=== PATIENT | female | born 2000 | race Caucasian/White ===

== ENCOUNTER 2021-10-15 11:50 | Emergency (ER) | payer OTHER, SELFPAY ==
[2021-10-15 13:16] VITALS: BP 151/78; PULSE 75; RESP 16; TEMP 36.4; O2SAT 99; BMI 42.7
--- NOTE | 2021-10-15 15:33 | ED.WOUNDLAC ---
HPI - Wound/Laceration General Chief Complaint: Wound/Laceration Stated Complaint: head inj lac 10/15/21 Time Seen by Provider: 10/15/21 15:32 Source: patient Mode of arrival: ambulatory Limitations: no limitations History of Present Illness HPI narrative: Patient is a 21 year old female presenting to the emergency department today with with a headache. Patient states that she accidentally closed her jeep trunk down onto her head. Patient states that she has a cut on her scalp and now has a headache. Patient denies any loss of consciousness with the incident. Patient denies any dizziness, lightheadedness, abdominal pain, nausea, vomiting, fever, chills, blurry vision, double vision, loss of vision, chest pain, difficulty breathing, shortness of breath, back pain, night sweats, pain with urination, increased urinary frequency, increased urinary urgency, blood in her urine or stool, syncope or a near syncopal episode, bowel incontinence, bladder incontinence, bowel retention, bladder retention, or any other complaints at this time. Onset (ago): hour(s) Location: scalp Place: home Patient tetanus UTD: No Context: accidental Associated symptoms: pain Related Data Allergies Allergy/AdvReac Type Severity Reaction Status Date / Time latex Allergy Rash Verified 10/15/21 13:21 Review of Systems Constitutional: Constitutional: Reports no additional constitutional complaints, Denies chills, Denies fever(s), Reports headache(s) and Denies night sweats Eyes: Eyes: Reports no additional eye complaints, Denies blurry vision, Denies change in vision, Denies diplopia, Denies eye discharge, Denies loss of vision and Denies eye pain ENT: Denies dizziness and Reports headache(s) Cardiovascular: Cardiovascular: Reports no additional cardiovascular complaints, Denies chest pain, Denies lightheadedness, Denies Loss of Consciousness and Denies dyspnea Respiratory: Respiratory: Reports no additional respiratory complaints and Denies dyspnea Gastrointestinal: Gastrointestinal: Reports no additional gastrointestinal complaints, Denies abdominal pain, Denies melena, Denies hematochezia, Denies change in bowel habits and Denies change in stool character Genitourinary: Genitourinary: Denies hematuria, Denies urinary frequency, Denies dysuria, Denies urinary incontinence, Denies urinary hesitancy and Denies urinary urgency Musculoskeletal: Musculoskeletal: Reports no additional musculoskeletal complaints, Denies numbness and Denies tingling Neurologic: Denies dizziness, Reports headache(s), Denies loss of vision, Denies numbness and Denies tingling Psychiatric: Psychiatric: Reports no additional psychiatric complaints Endocrine: Endocrine: Reports no additional endocrine complaints Hematologic/Lymphatic: Hematologic/Lymphatic: Reports no additional hematologic/lymphatic complaints Allergic/Immunologic: Allergic/Immunologic: Reports no additional allergic/immunologic complaints PMFSH Past Medical History Attestation statement: The following information was validated with the patient. Source: old records reviewed Physical Exam Vital Signs: Vital Signs: Last Vital Signs Temp 97.6 F 10/15/21 13:16 Pulse 75 10/15/21 13:16 Resp 16 10/15/21 13:16 BP 151/78 H 10/15/21 13:16 Pulse Ox 99 10/15/21 13:16 O2 Del Method 10/15/21 13:16 BMI result Body Mass Index 42.7 Const: General: cooperative, no acute distress, alert and awake Nutritional Appearance: well nourished Orientation/consciousness: patient oriented x3 Limitations: no limitations HEENT: Other: small laceration to the center of the scalp, just above the hairline, no active bleeding and no gaping areas Ears: hearing grossly normal bilaterally and external ears normal General nose exam: Normal external nose present, no nasal discharge noted and no epistaxis Face and sinus: Yes normal facial exam, No abrasion and No laceration Mouth: Normal oral and palatal mucosa present, no drooling and no muffled voice Eyes: General: appearance normal, both eyes and all related structures Periorbital: periorbital findings normal Eyelids: Yes eyelids normal Conjunctivae: conjunctivae normal Pupils: Equal, round and reactive pupils present EOM: EOMs intact bilaterally Neck: Neck: Yes normal visual inspection, Yes full ROM and Yes no lymphadenopathy Chest: Chest palpation & inspection: normal inspection of the chest Resp: Effort & Inspection: normal respiratory effort and able to speak in complete sentences Auscultation: clear to auscultation bilaterally GI: Inspection: Yes normal to inspection Neuro: General: patient oriented x3 and moves all extremities Cranial nerves: Yes Equal, round and reactive pupils present Cognition (Neuro): normal cognition Motor exam (neuro): 5/5 motor strength present throughout Sensory Exam: Normal double simultaneous stimulation for sensation Coordination: [id number] test normal Extrem: General: Yes normal to inspection, Yes full ROM and Yes capillary refill normal Psych: Appearance: grossly normal Mental Status: mental status grossly normal Affect: normal affect Attitude: cooperative Thought process: Normal thought process present Thought content: Normal thought content present Insight: Good insight present (Psych) MDM - Wound/Laceration MDM Narrative Medical decision making narrative: Patient is a 21 year old female presenting to the emergency department today with a headache and a laceration. Patient's physical exam showed a very small laceration to the patient's scalp, just above the hairline. There was no active bleeding and no gaping areas requiring manual closure. I explained my physical exam findings to the patient. I answered all questions asked by the patient. Patient received a tetanus booster. I stressed the importance of the patient taking her medication as prescribed. I stressed the importance of the patient following up with her primary care provider. I stressed the importance of the patient returning to the emergency department immediately if her symptoms were to worsen or if she were to develop any dizziness, shortness of breath, difficulty breathing, chest pain, blurry vision, loss of vision, nausea, vomiting, abdominal pain, fever, chills, back pain, or any other complaints. Patient verbalized agreement and understanding with this treatment plan and discharge. Differential Diagnosis Differential diagnosis: Likely laceration Discharge Plan Discharge Clinical Impression: Concussion Patient Disposition: Home, Self-Care Instructions: Concussion (ED) Additional Instructions: Follow up with your primary care provider. Return to the emergency department immediately if your symptoms worsen or if you develop any dizziness, shortness of breath, difficulty breathing, chest pain, blurry vision, loss of vision, nausea, vomiting, abdominal pain, fever, chills, back pain, or any other complaints. Referrals: [facility] [Provider Group] (Call to establish and follow up with a primary care provider. If you already have a primary care provider, please follow up with them. ) [facility], [facility] [Provider Group] (Call to establish and follow up with a primary care provider. If you already have a primary care provider, please follow up with them. ) [facility] [Provider Group] (Call to establish and follow up with a primary care provider. If you already have a primary care provider, please follow up with them. ) Print Language: Polish
[2021-10-15] MEDS: Diphth,Pertus(ACell),Tet Adult 0.5 ML SYRINGE IM (15:58)
== END 2021-10-15 16:09 | disposition home or self-care (01) ==
PROVIDERS: Emergency Provider Emergency Medicine
DX: S01.91XA Laceration without foreign body of unspecified part of head, initial encounter (principal); S06.0X9A Concussion with loss of consciousness of unspecified duration, initial encounter; Y29.XXXA Contact with blunt object, undetermined intent, initial encounter; Y93.9 Activity, unspecified; Y92.810 Car as the place of occurrence of the external cause; Y99.9 Unspecified external cause status
CPT/HCPCS: 90471; 90715; 99282; 99284

== ENCOUNTER 2022-02-22 10:29 | Outpatient (REF) | payer OTHER, SELFPAY ==
[2022-02-22 10:41] LABS: MANUAL DIFF FLAG NO
[2022-02-22 11:44] LABS: Basophils Absolute Auto 0.1 X10*3/uL (0.0-0.2); Basophils Percent Auto 0.6 % (0-2); Eosinophils Absolute Auto 0.3 X10*3/uL (0.0-0.4); Eosinophils Percent Auto 3.1 % (0-4); Estimated Average Glucose 88 mg/dL; Hematocrit 38.7 % (37.0-47.0); Hemoglobin 11.1 g/dl (12.0-16.0); Hemoglobin A1c % 4.7 %; Imm Gran Abs Auto 0.04 X10*3/uL (0.00-0.03); Imm Gran Pct Auto 0.4 % (0.0-0.4); Lymphocytes Absolute Auto 2.7 X10*3/uL (1.2-4.9); Lymphocytes Percent Auto 24.7 % (20-40); Mean Corpuscular HGB Conc 28.7 g/dl (31.0-35.0); Mean Corpuscular Hemoglobin 20.8 pg (27.0-33.0); Mean Corpuscular Volume 72.5 fL (80.0-98.0); Mean Platelet Volume 9.6 fL (9.4-12.3); Monocytes Absolute Auto 0.7 X10*3/uL (0.1-1.2); Monocytes Percent Auto 6.7 % (2-11); Neutrophils Percent Auto 64.5 % (45-73); Platelet Count 377 X10*3/uL (160-400); Red Blood Count 5.34 X10*6/uL (4.20-5.50); Red Cell Distribution Width 18.7 % (11.0-16.0); White Blood Count 10.8 X10*3/uL (4.8-10.8)
[2022-02-22 12:25] LABS: Alanine Aminotransferase 36 U/L (0-31); Albumin Level 4.3 g/dL (3.5-5.0); Alkaline Phosphatase 97 U/L (39-117); Anion Gap 10 (12-20); Aspartate Amino Transferase 26 U/L (5-31); Bilirubin Total 0.3 mg/dL (0.0-1.0); Blood Urea Nitrogen 13 mg/dL (9-16); Calcium 9.7 mg/dL (8.4-10.2); Carbon Dioxide 26 mmol/L (22-29); Chloride 107 mmol/L (96-108); Cholesterol 143 mg/dL; Estimated Glomerular Filt Rate > 60; Glucose Random 81 mg/dL (60-115); HDL Cholesterol 44 mg/dL; LDL Cholesterol Calculated 87 mg/dl; Sodium 139 mmol/L (135-145); Total Protein 7.2 g/dL (6.5-8.0); Triglycerides 62 mg/dL
== END 2022-02-22 10:30 | disposition home or self-care (01) ==
LOC: HO.LAB 10:29
PROVIDERS: PCP Internal Medicine; Visit Provider Internal Medicine
DX: Z00.00 Encounter for general adult medical examination without abnormal findings (principal); E66.01 Morbid (severe) obesity due to excess calories; F32.9 Major depressive disorder, single episode, unspecified; N91.5 Oligomenorrhea, unspecified
CPT/HCPCS: 36415; 80053; 80061; 83036; 84443; 85025

== ENCOUNTER 2022-03-13 11:42 | Outpatient (REF) | payer OTHER, SELFPAY ==
--- NOTE | ~2022-03-13 | XR_ITS ---
EXAMINATION: XR FOREARM, RIGHT XR WRIST, RIGHT CLINICAL INFORMATION: Pain wrist and forearm. COMPARISON: None TECHNIQUE: The right forearm is imaged in 2 views. The right wrist is imaged in 3 views. There are a total of 5 views. FINDINGS: Right forearm shows no fracture or dislocation or destructive process. No elbow capsular effusion. The articular surfaces appear normal. The right breast shows no fracture or dislocation. The pronator quadratus fat pad appears normal. No joint narrowing or erosive change or chondrocalcinosis. XR/XR wrist RT 2V IMPRESSION: Normal right forearm and right wrist.
--- NOTE | ~2022-03-13 | XR_ITS ---
EXAMINATION: XR FOREARM, RIGHT XR WRIST, RIGHT CLINICAL INFORMATION: Pain wrist and forearm. COMPARISON: None TECHNIQUE: The right forearm is imaged in 2 views. The right wrist is imaged in 3 views. There are a total of 5 views. FINDINGS: Right forearm shows no fracture or dislocation or destructive process. No elbow capsular effusion. The articular surfaces appear normal. The right breast shows no fracture or dislocation. The pronator quadratus fat pad appears normal. No joint narrowing or erosive change or chondrocalcinosis. XR/XR forearm RT 2V IMPRESSION: Normal right forearm and right wrist.
== END 2022-03-13 11:43 | disposition home or self-care (01) ==
LOC: HO.HMGCX 11:42
PROVIDERS: PCP Internal Medicine; Visit Provider Physician Assistant
DX: M79.631 Pain in right forearm (principal); M25.531 Pain in right wrist
CPT/HCPCS: 73090; 73100

== ENCOUNTER 2022-06-19 10:01 | Outpatient (REF) | payer OTHER, SELFPAY ==
[2022-06-19 10:18] LABS: MANUAL DIFF FLAG NO
[2022-06-19 10:33] LABS: Basophils Percent Auto 0.4 % (0-2); Eosinophils Absolute Auto 0.3 X10*3/uL (0.0-0.4); Eosinophils Percent Auto 3.9 % (0-4); Hematocrit 39.9 % (37.0-47.0); Hemoglobin 12.1 g/dl (12.0-16.0); Imm Gran Abs Auto 0.02 X10*3/uL (0.00-0.03); Imm Gran Pct Auto 0.3 % (0.0-0.4); Lymphocytes Absolute Auto 2.6 X10*3/uL (1.2-4.9); Lymphocytes Percent Auto 33.1 % (20-40); Mean Corpuscular HGB Conc 30.3 g/dl (31.0-35.0); Mean Corpuscular Hemoglobin 24.7 pg (27.0-33.0); Mean Corpuscular Volume 81.4 fL (80.0-98.0); Mean Platelet Volume 9.7 fL (9.4-12.3); Monocytes Absolute Auto 0.7 X10*3/uL (0.1-1.2); Monocytes Percent Auto 8.5 % (2-11); Neutrophils Absolute Auto 4.2 x10*3/uL (2.0-8.3); Neutrophils Percent Auto 53.8 % (45-73); Platelet Count 300 X10*3/uL (160-400); Red Cell Distribution Width 15.6 % (11.0-16.0); White Blood Count 7.8 X10*3/uL (4.8-10.8)
[2022-06-19 12:34] LABS: Ferritin 22 ng/mL (10-122)
== END 2022-06-19 10:02 | disposition home or self-care (01) ==
LOC: HO.LAB 10:01
PROVIDERS: PCP Internal Medicine; Visit Provider Internal Medicine
DX: D50.8 Other iron deficiency anemias (principal); F32.5 Major depressive disorder, single episode, in full remission; I10 Essential (primary) hypertension; M72.2 Plantar fascial fibromatosis
CPT/HCPCS: 36415; 82728; 85025

== ENCOUNTER 2022-10-18 14:55 | Outpatient (AMB) | payer OTHER, SELFPAY ==
[2022-10-18 15:18] VITALS: BP 122/68; PULSE 81; TEMP 36.6; O2SAT 99; BMI 40.6
--- NOTE | 2022-10-18 15:18 | MHC.OFFWIV ---
Intake Vital Signs 10/18/22 15:18 Height 5 ft 10 in Weight 283 lb 4 oz BMI 40.6 BP 122/68 Blood Pressure Location Rt brachial Position Sitting Pulse 81 Pulse Source Pulse Oximeter Temp 97.9 F Temp Source Temporal Artery Scan Pulse Oximetry (%) 99 Oxygen Delivery Method Room Air Intake Visit Reasons: EP, WC, low back hip pain due to fall Intake Note: pt is here for c/o low back hip pain due to fall Patient Tobacco Use Status: Never used Tobacco Allergies latex Allergy (Verified 10/18/22 15:19) Rash Do you need a note to return to daycare/school/sports/work: Yes HPI HPI Comments History of Present Illness Details 22-year-old female slipped and fell yesterday while at work presents with low back pain. Denies radiation down the leg numbness or tingling or difficulties in the bathroom. Has some pain with ambulation. PFS Social History Patient Tobacco Use Status: Never used Tobacco Review of Systems Const All systems reviewed & are unremarkable except as noted in HPI and below Musc Reports back pain Physical Exam Vital Signs: Last Vital Signs Temp 97.9 F 10/18/22 15:18 Pulse 81 10/18/22 15:18 BP 122/68 10/18/22 15:18 Pulse Ox 99 10/18/22 15:18 Oxygen Delivery Method Room Air 10/18/22 15:18 BMI result Body Mass Index 40.6 Const General: no acute distress and alert Back/Spine/Pelvis Other: No midline tenderness to palpation Assessment & Plan Assessment & Plan (1) Lumbar strain: Code(s): S39.012A - Strain of muscle, fascia and tendon of lower back, initial encounter Qualifiers: Encounter type: initial encounter Qualified Code(s): S39.012A - Strain of muscle, fascia and tendon of lower back, initial encounter Plan patient signs and symptoms most consistent with lumbar strain secondary to slip and fall. No need for imaging at this time will Recommend symptomatic treatment. Discharge instructions, follow up and treatment are discussed with patient in my usual fashion. Alternatives in treatment are also discussed. The patient will return for worsening symptoms or as needed. Advised that any labs/imaging ordered will be followed up on and contact made if further treatment needed. Counseled that patient's condition may require further evaluation and/or treatment. Symptoms of concern for worsening disorder discussed in detail in my customary manner. Patient does verbalize understanding of the plan, there are no apparent barriers to communication. The patient is given the opportunity to ask questions and have them answered to his/her satisfaction Medications: New meloxicam 7.5 mg PO DAILY 14 tabs 0RF cyclobenzaprine 5 mg PO BEDTIME PRN 10 tabs 0RF muscle spasm lidocaine 5% leave on most painful area for up to 12 hrs 1 patch topical DAILY 15 ea 0RF Patient Instructions: You were seen and evaluated in the urgent care for your back pain. Received examination. This time we believe her back pain is musculoskeletal in nature. Recommend continued symptomatic treatment using Tylenol, Motrin, ice, heat, lidocaine patches as needed. Prescribed a short course of Flexeril meloxicam. Please take as directed. Please return to the emergency department expressing new or worsening symptoms such as numbness and tingling between her legs difficulty going to the bathroom, worsening pain, fever or any concerning symptoms not mentioned above and Coding Level of Care Code Est Pt Level 3 (17699) Diagnoses Strain of lumbar region, initial encounter S39.012A Encounter type: initial encounter
== END 2022-10-18 15:46 | disposition home or self-care (01) ==
PROVIDERS: PCP Internal Medicine; Visit Provider Physician Assistant
DX: S39.012A Strain of muscle, fascia and tendon of lower back, initial encounter (principal); Z04.2 Encounter for examination and observation following work accident
CPT/HCPCS: 99213

== ENCOUNTER 2022-10-22 10:28 | Outpatient (AMB) | payer OTHER, SELFPAY ==
[2022-10-22 10:42] VITALS: BP 112/60; PULSE 110; TEMP 35.5; O2SAT 97; BMI 40.6
--- NOTE | 2022-10-22 10:42 | AM.OFFWIN_ITS ---
Intake Vital Signs 10/22/22 10:42 Height 5 ft 10 in Weight 283 lb 4 oz BMI 40.6 BP 112/60 Blood Pressure Location Rt brachial Position Sitting Pulse 110 H Pulse Source Pulse Oximeter Temp 96 F L Temp Source Temporal Artery Scan Pulse Oximetry (%) 97 Oxygen Delivery Method Room Air Intake Visit Reasons: EST?WC Follow up on back pain Intake Note: pt is here for c/o back pain, follow up. Patient Tobacco Use Status: Never used Tobacco Allergies latex Allergy (Verified 10/22/22 11:13) Rash Medication List - Last Reconciled 10/22/22 by Victorino Garza MD cyclobenzaprine 5 mg PO BEDTIME PRN desogestrel-ethinyl estradiol 0.15-0.03 mg (Apri) 1 tab PO DAILY erythromycin 1 appl ophthalmic-Right DAILY ferrous sulfate 325 mg PO DAILY fluoxetine 10 mg PO DAILY lidocaine 5% 1 patch topical DAILY loratadine (Claritin) 10 mg PO DAILY meloxicam 7.5 mg PO DAILY Do you need a note to return to daycare/school/sports/work: Yes HPI EST?WC Follow up on back pain HPI Details 22-year-old female presents to the [facility] for a sick visit. Patient is recovering from her back pain. She had a work related injury last week and was seen for lower back pain. Patient was given anti-inflammatory and muscle relaxant. She reports that her medications are helping but she still has stiffness in her lower back. Patient is working as a [employer] and needs a note about her work restrictions. [facility] Social History Patient Tobacco Use Status: Never used Tobacco Physical Exam Vital Signs: Last Vital Signs Temp 96 F L 10/22/22 10:42 Pulse 110 H 10/22/22 10:42 BP 112/60 10/22/22 10:42 Pulse Ox 97 10/22/22 10:42 Oxygen Delivery Method Room Air 10/22/22 10:42 BMI result Body Mass Index 40.6 Const General: cooperative and healthy appearing Nutritional Appearance: well nourished Orientation/consciousness: patient oriented x3 Limitations: no limitations HEENT Head: Yes normal to inspection Eyes General: appearance normal, both eyes and all related structures Neck Neck: Yes normal visual inspection Chest Chest palpation & inspection: normal palpation of entire chest wall Resp Effort & Inspection: normal respiratory effort Neuro General: patient oriented x3 Assessment & Plan Assessment & Plan (1) Lumbar strain: Code(s): S39.012A - Strain of muscle, fascia and tendon of lower back, initial encounter Qualifiers: Encounter type: initial encounter Qualified Code(s): S39.012A - Strain of muscle, fascia and tendon of lower back, initial encounter Plan: Continue current medications. Stretching exercises suggested. Note for work given. Coding Level of Care Code Est Pt Level 3 (36939) Diagnoses Strain of lumbar region, initial encounter S39.012A Encounter type: initial encounter
== END 2022-10-22 11:05 | disposition home or self-care (01) ==
PROVIDERS: PCP Internal Medicine; Visit Provider Internal Medicine
DX: S39.012A Strain of muscle, fascia and tendon of lower back, initial encounter (principal)
CPT/HCPCS: 99213

== ENCOUNTER 2022-11-01 12:23 | Outpatient (AMB) | payer OTHER, SELFPAY ==
--- NOTE | 2022-11-01 12:36 | AM.OFFWIN_ITS ---
Intake Vital Signs 11/01/22 12:42 Height 5 ft 10 in Weight 280 lb BMI 40.2 BP 114/70 Blood Pressure Location Rt brachial Position Sitting Pulse 93 Pulse Source Pulse Oximeter Temp 97.4 F Temp Source Temporal Artery Scan Pulse Oximetry (%) 98 Oxygen Delivery Method Room Air Intake Visit Reasons: EP, RTW ([phone]) Intake Note: Pt is here requesting a letter to go back to work with no restrictions. Patient Tobacco Use Status: Never used Tobacco Allergies latex Allergy (Verified 11/01/22 12:38) Rash Do you need a note to return to daycare/school/sports/work: Yes HPI HPI Comments History of Present Illness Details The patient presents to urgent care for evaluation after a slip and fall. She was seen here and given a work note bring on restrictions for light duty. Patient is feeling better and requesting a to work at full capacity. When further questioned she reports that she still has pain with bending and some pain with lifting objects. No numbness or tingling in her legs. She is [facility] Social History Patient Tobacco Use Status: Never used Tobacco Review of Systems Const Denies weakness Eyes Reports no additional complaints ENT Denies dysphagia Card Reports no additional complaints, Denies dyspnea and Denies dyspnea on exertion Resp Denies cough, Denies hemoptysis, Denies dyspnea and Denies dyspnea on exertion GI Denies dysphagia Denies urinary incontinence Musc Reports back pain, Denies muscle weakness, Denies numbness and Denies tingling Neuro Denies focal weakness, Denies numbness, Denies tingling, Denies paresthesias and Denies weakness Physical Exam Vital Signs: Last Vital Signs Temp 97.4 F 11/01/22 12:42 Pulse 93 11/01/22 12:42 BP 114/70 11/01/22 12:42 Pulse Ox 98 11/01/22 12:42 Oxygen Delivery Method Room Air 11/01/22 12:42 BMI result Body Mass Index 40.2 Const General: healthy appearing and no acute distress Orientation/consciousness: patient oriented x3 Eyes General: appearance normal, both eyes and all related structures Pupils: Equal, round and reactive pupils present Resp Effort & Inspection: normal respiratory effort and able to speak in complete sentences General: Yes no CVA tenderness Back/Spine/Pelvis Back: no CVA tenderness Thoracic/Lumbar Spine: thoracic and lumbar spine normal to inspection, paraspinal muscle tenderness (spasm of paraspinal musculature) and thoraco- lumbar ROM limited Neuro General: patient oriented x3 and Normal light touch and pain sensation Cranial nerves: Yes Equal, round and reactive pupils present Assessment & Plan Assessment & Plan (1) Lumbar strain: Code(s): S39.012A - Strain of muscle, fascia and tendon of lower back, initial encounter Qualifiers: Encounter type: initial encounter Qualified Code(s): S39.012A - Strain of muscle, fascia and tendon of lower back, initial encounter Plan Discussion with patient and recommend ongoing restrictions but will lift restrictions to some extent so that patient can increase some activity at work. Patient agreeable with this plan. Coding Level of Care Code Est Pt Level 3 (08466) Diagnoses Strain of lumbar region, initial encounter S39.012A Encounter type: initial encounter
[2022-11-01 12:42] VITALS: BP 114/70; PULSE 93; TEMP 36.3; O2SAT 98; BMI 40.2
== END 2022-11-01 13:20 | disposition home or self-care (01) ==
PROVIDERS: PCP Internal Medicine; Visit Provider Emergency Medicine
DX: S39.012A Strain of muscle, fascia and tendon of lower back, initial encounter (principal)
CPT/HCPCS: 99213

== ENCOUNTER 2022-11-12 11:09 | Outpatient (AMB) | payer OTHER, SELFPAY ==
[2022-11-12 11:33] VITALS: BP 126/72; PULSE 95; TEMP 36.8; O2SAT 98; BMI 40.9
--- NOTE | 2022-11-12 11:33 | MHC.OFFWIV ---
Intake Vital Signs 11/12/22 11:33 Height 5 ft 10 in Weight 129.444 kg BMI 40.9 BP 126/72 Blood Pressure Location Rt brachial Position Sitting Pulse 95 Pulse Source Pulse Oximeter Temp 98.3 F Temp Source Oral Pulse Oximetry (%) 98 Oxygen Delivery Method Room Air Intake Visit Reasons: EP Follow up Back pain WC Patient Tobacco Use Status: Never used Tobacco Allergies latex Allergy (Verified 11/12/22 11:33) Rash Do you need a note to return to daycare/school/sports/work: Yes HPI HPI Comments History of Present Illness Details 1154 This is a 22-year-old female presenting to the clinic status post slip and fall few weeks ago at work, patient reports she slipped on a wet floor while they were cleaning carpets landed on her back since then has been having pain, has been taking meloxicam with little to no relief. Reports she was given a note to be on light duty and she feels like this needs to be extended. Reporting pain with lifting of heavy objects. She has not yet seen a specialist. Denies fevers, chills, numbness, tingling, saddle paresthesias, urinary/bowel incontinence/retention nausea, vomiting. On exam patient has lumbar and thoracic paraspinous tenderness. No midline tenderness. Full range of motion. No saddle paresthesias. Patient ambulatory. Likely lumbar/thoracic spasm/sprain. No signs of cauda equina, epidural abscess, cord compression. Plan will discharge with few days of prednisone, Lidoderm patch naproxen. Educated patient on diagnosis and treatment plan, answered all question, patient verbalizes understanding. At this time patient will be discharged home, advised to return with new or worsening symptoms. Educated on worrisome signs and symptoms and when to return. At this time I feel comfortable discharge home. Patient would benefit from specialty follow-up. COUNTS INCLUDE 234 BEDS AT THE [facility] Medical History (Updated 11/12/22 @ 11:56 by SAMY Coronel) Lumbar paraspinal muscle spasm Social History Patient Tobacco Use Status: Never used Tobacco Review of Systems Const Details: Constitutional : No Weight loss, No Fever, No Chills, ENT/Mouth : No Hearing loss, No Ear Pain, No Nasal Congestion, No Sinus Pain, No Hoarseness, No sore throat, No Rhinorrhea, No Swallowing Difficulty Cardiovascular : No Chest Pain, No SOB Respiratory : No Cough, No Dyspnea Gastrointestinal : No Nausea, No Vomiting, No Diarrhea, No abdominal Pain, No Hematochezia, No Melena Genitourinary : No Dysuria, No Urinary Frequency, No Hematuria, No Urinary Incontinence, Musculoskeletal : positive back pain Skin : No Skin Lesions, No rash Neuro : No Weakness, No Numbness, No Paresthesias, no loss of bowel or bladder incontinence, no saddle anesthesia All systems reviewed & are unremarkable except as noted in HPI and below Physical Exam Vital Signs: Last Vital Signs Temp 98.3 F 11/12/22 11:33 Pulse 95 11/12/22 11:33 BP 126/72 11/12/22 11:33 Pulse Ox 98 11/12/22 11:33 Oxygen Delivery Method Room Air 11/12/22 11:33 BMI result Body Mass Index 40.9 vss Appearance: Alert.? Oriented X3.? No acute distress.? Head: Normocephalic, atraumatic, no step-offs or deformities Eyes: Pupils equal, round and reactive to light.? ENT: Pharynx normal.? Neck: Normal inspection.? Neck supple.? CVS: Normal heart rate and rhythm.? Pulses normal.? Respiratory: No respiratory distress.? Breath sounds normal.? Abdomen: Soft and nontender.? Skin: Skin warm and dry.? Normal skin color.? Normal skin turgor.? Extremities: No lower extremity edema.? No calf ttp. 5/5 strength to bilateral upper and lower extremities Back: No midline tenderness, no C-spine tenderness, full range of motion, no CVA tenderness bilaterally+ lumbar and thoracic paraspinous tenderness. No midline tenderness. Full range of motion. No saddle paresthesias. Patient ambulatory. Neuro: Oriented X 3.? No motor deficit.? No sensory deficit. CN 2-12 intact Assessment & Plan Assessment & Plan (1) Lumbar strain: Code(s): S39.012A - Strain of muscle, fascia and tendon of lower back, initial encounter Qualifiers: Encounter type: initial encounter Qualified Code(s): S39.012A - Strain of muscle, fascia and tendon of lower back, initial encounter Plan Take your medications as prescribed. If you were prescribed antibiotics today, it is important that you take your medication to their entirety, do not skip any doses, do not finish them early. Follow-up with your primary care provider this week. Return to the emergency department with new or worsening symptoms. Such as fevers, chills, chest pain, shortness of breath, nausea, vomiting, dizziness, headache, vision changes, lethargy In case of emergency call 911 Follow-up with your PCP will likely give you a referral to a specialist Medications: New prednisone 40 mg (2 x 20 mg) PO DAILY 10 tabs 0RF 5 days lidocaine 4% (AsperFlex (lidocaine)) 1 patch topical DAILY PRN 15 ea 0RF pain naproxen 500 mg PO BID PRN 14 tabs 0RF pain Coding Level of Care Code Est Pt Level 3 (38309) Diagnoses Strain of lumbar region, initial encounter S39.012A Encounter type: initial encounter
== END 2022-11-12 12:12 | disposition home or self-care (01) ==
PROVIDERS: PCP Internal Medicine; Visit Provider Physician Assistant
DX: S39.012A Strain of muscle, fascia and tendon of lower back, initial encounter (principal)
CPT/HCPCS: 99213

== ENCOUNTER 2023-02-04 22:05 | Emergency (ER) | payer OTHER, SELFPAY ==
--- NOTE | 2023-02-04 | ECG_ITS ---
Test Reason : ABD PAIN Blood Pressure : / mmHG Vent. Rate : 090 BPM Atrial Rate : 090 BPM P-R Int : 152 ms QRS Dur : 086 ms QT Int : 344 ms P-R-T Axes : 029 028 019 degrees QTc Int : 420 ms Normal sinus rhythm Normal ECG No previous ECGs available Referred By: Generic ED Physician Electronically Signed By:CINTHYA DOUGLAS
--- NOTE | ~2023-02-04 | US_ITS ---
EXAMINATION: US ABDOMEN LIMITED CLINICAL INFORMATION: Right upper quadrant pain. COMPARISON: None available. TECHNIQUE: Real-time imaging of the right upper quadrant abdominal viscera. FINDINGS: GALLBLADDER: The gallbladder is physiologically distended without evidence of stones, sludge, polyps, wall thickening or pericholecystic fluid. COMMON BILE DUCT: Normal in caliber measuring 0.2 cm in diameter. US/US abdomen limited IMPRESSION: Negative exam.
[2023-02-04 22:11] VITALS: BP 149/87; PULSE 100; RESP 14; TEMP 36.6; O2SAT 98; BMI 43.7
[2023-02-04 22:30] LABS: MANUAL DIFF FLAG NO
[2023-02-04 22:31] LABS: Basophils Percent Auto 0.3 % (0-2); Eosinophils Absolute Auto 0.4 X10*3/uL (0.0-0.4); Eosinophils Percent Auto 3.4 % (0-4); Hematocrit 43.6 % (37.0-47.0); Hemoglobin 13.9 g/dl (12.0-16.0); Imm Gran Abs Auto 0.04 X10*3/uL (0.00-0.03); Imm Gran Pct Auto 0.3 % (0.0-0.4); Lymphocytes Absolute Auto 2.6 X10*3/uL (1.2-4.9); Lymphocytes Percent Auto 22.1 % (20-40); Mean Corpuscular HGB Conc 31.9 g/dl (31.0-35.0); Mean Corpuscular Volume 84.7 fL (80.0-98.0); Mean Platelet Volume 9.3 fL (9.4-12.3); Monocytes Absolute Auto 0.8 X10*3/uL (0.1-1.2); Monocytes Percent Auto 7.1 % (2-11); Neutrophils Percent Auto 66.8 % (45-73); Platelet Count 321 X10*3/uL (160-400); Red Blood Count 5.15 X10*6/uL (4.20-5.50); Red Cell Distribution Width 13.7 % (11.0-16.0); White Blood Count 11.9 X10*3/uL (4.8-10.8)
[2023-02-04 22:46] LABS: Alanine Aminotransferase 19 U/L (0-31); Albumin Level 4.1 g/dL (3.5-5.0); Alkaline Phosphatase 89 U/L (39-117); Anion Gap 13 (12-20); Aspartate Amino Transferase 16 U/L (5-31); Bilirubin Total 0.2 mg/dL (0.0-1.0); Blood Urea Nitrogen 13 mg/dL (9-16); Calcium 9.8 mg/dL (8.4-10.2); Carbon Dioxide 26 mmol/L (22-29); Chloride 108 mmol/L (96-108); Creatinine Clr Calc Pharmacy 153.4; Estimated Glomerular Filt Rate > 60; Glucose Random 97 mg/dL (60-115); Lipase 17 U/L (8-78); Potassium 3.6 mmol/L (3.3-5.1); Sodium 143 mmol/L (135-145); Total Protein 6.8 g/dL (6.5-8.0)
--- NOTE | 2023-02-04 22:47 | ED.ABDPAIN ---
HPI - Abdominal Pain General Chief Complaint: Abdominal Pain Stated Complaint: higher abd pain Time Seen by Provider: 02/04/23 22:37 Source: patient Mode of arrival: ambulatory Limitations: no limitations History of Present Illness HPI narrative: Patient otherwise healthy complaining of upper abdominal pain after eating dinner at work last evening pain is more in epigastric right upper quadrant with no nausea vomiting gets worse with movements no fever no chills no urinary symptom patient also used to get abdominal migraines years ago but not happening lately is increased anxiety Related Data Home Medications Medication Instructions Recorded Confirmed loratadine 10 mg tablet (Claritin) 10 mg PO DAILY 01/11/22 10/22/22 desogestrel 0.15 mg-ethinyl 1 tab PO DAILY 05/21/22 10/22/22 estradiol 0.03 mg tablet (Apri) ferrous sulfate 325 mg (65 mg 325 mg PO DAILY 05/21/22 10/22/22 iron) tablet fluoxetine 10 mg capsule 10 mg PO DAILY 05/21/22 10/22/22 Previous Rx's Medication Instructions Recorded erythromycin 5 mg/gram (0.5 %) eye 1 appl ophthalmic-Right DAILY #3.5 05/21/22 ointment grams cyclobenzaprine 5 mg tablet 5 mg PO BEDTIME PRN muscle spasm 10/18/22 #10 tabs lidocaine 5 % topical patch 1 patch topical DAILY #15 ea 10/18/22 meloxicam 7.5 mg tablet 7.5 mg PO DAILY #14 tabs 10/18/22 lidocaine 4 % topical patch 1 patch topical DAILY PRN pain #15 11/12/22 (AsperFlex (lidocaine)) ea naproxen 500 mg tablet 500 mg PO BID PRN pain #14 tabs 11/12/22 prednisone 20 mg tablet 40 mg (2 x 20 mg) PO DAILY 5 days 11/12/22 #10 tabs dicyclomine 20 mg tablet 20 mg PO TID PRN abdominal pain 02/05/23 #20 tabs omeprazole 40 mg capsule,delayed 40 mg PO DAILY #30 caps 02/05/23 release Allergies Allergy/AdvReac Type Severity Reaction Status Date / Time latex Allergy Rash Verified 11/12/22 11:33 Review of Systems Review of Systems Yes all other systems are reviewed and are negative PMFSH Past Medical History Medical History Lumbar paraspinal muscle spasm Social History Social History Patient Tobacco Use Status: Never used Tobacco Smoked in Last 30 Days: No Use of substances other than those prescribed or required for medical reasons: No Advance Directives: No Advance Directives Information Provided: No Physical Exam ED Vital Signs: Vital Signs - 24 hr 02/04/23 22:11 02/04/23 23:00 02/05/23 00:15 Temperature 97.9 F 98.3 F Pulse Rate 100 96 82 Respiratory Rate 14 16 18 Blood Pressure 149/87 H 141/77 H 132/86 Pulse Oximetry 98 98 98 Oxygen Delivery Method Room Air Room Air Room Air BMI result Body Mass Index 43.7 Appearance: Alert. Oriented X3. No acute distress. Obese Eyes: No pallor or icterus ENT: Pharynx normal. Oral Mucosa moist Neck: Normal inspection. Neck supple. CVS: Normal heart rate and rhythm. Pulses normal. Respiratory: No respiratory distress. Equal air entry bilateral, Abdomen: Soft, tenderness epigastric area no rebound tenderness or guarding Bowel sounds are present, no mass palpable, no CVA tenderness Skin: Skin warm and dry. Neuro: Oriented X 3. Medical Decision Making Differential Diagnosis Differential Diagnoses: The differential diagnosis associated with the presentation includes Cholelithiasis/cholecystitis/gastritis/abdominal migraine/IBS Lab Data MDM Lab Attestation statement: I reviewed the patient's lab results. 02/04/23 22:26 02/04/23 22:26 Labs: Lab Results 02/04/23 02/05/23 Range/Units 22:26 00:21 WBC 11.9 H (4.8-10.8) X10*3/uL RBC 5.15 (4.20-5.50) X10*6/uL Hgb 13.9 (12.0-16.0) g/dl Hct 43.6 (37.0-47.0) % MCV 84.7 (80.0-98.0) fL MCH 27.0 (27.0-33.0) pg MCHC 31.9 (31.0-35.0) g/dl RDW 13.7 (11.0-16.0) % Plt Count 321 (160-400) X10*3/uL MPV 9.3 L (9.4-12.3) fL Immature Gran % (Auto) 0.3 (0.0-0.4) % Neut % (Auto) 66.8 (45-73) % Lymph % (Auto) 22.1 (20-40) % [place] % (Auto) 7.1 (2-11) % Eos % (Auto) 3.4 (0-4) % Baso % (Auto) 0.3 (0-2) % Lymph # (Auto) 2.6 (1.2-4.9) X10*3/uL [place] # (Auto) 0.8 (0.1-1.2) X10*3/uL Eos # (Auto) 0.4 (0.0-0.4) X10*3/uL Baso # (Auto) 0.0 (0.0-0.2) X10*3/uL Abs Immat Gran (auto) 0.04 H (0.00-0.03) X10*3/uL Absolute Neuts (auto) 8.0 (2.0-8.3) x10*3/uL Absolute Nucleated RBC 0.000 (0.0-0.012) X10*3/uL Nucleated RBC % (auto) 0.0 (0.0-0.2) /100WBC Sodium 143 (135-145) mmol/L Potassium 3.6 (3.3-5.1) mmol/L Chloride 108 (96-108) mmol/L Carbon Dioxide 26 (22-29) mmol/L Anion Gap 13 (12-20) BUN 13 (9-16) mg/dL Creatinine 0.86 (0.5-1.4) mg/dL Estim Creat Clear Calc 153.4 Estimated GFR > 60 Random Glucose 97 (60-115) mg/dL Calcium 9.8 (8.4-10.2) mg/dL Total Bilirubin 0.2 (0.0-1.0) mg/dL AST 16 (5-31) U/L ALT 19 (0-31) U/L Alkaline Phosphatase 89 (39-117) U/L Troponin I High Sens < 2.7 (<3.5-17.0) ng/L Total Protein 6.8 (6.5-8.0) g/dL Albumin 4.1 (3.5-5.0) g/dL Lipase 17 (8-78) U/L Urine Color Yellow Urine Appearance Clear Urine pH 6.5 (5.0-9.0) Ur Specific [place] >= 1.030 H (1.005-1.025) Urine Protein Negative (Neg-Trace) mg/dL Urine Glucose (UA) Negative (Negative) mg/dL Urine Ketones Trace (Negative) mg/dL Urine Blood Negative (Negative) Urine Nitrite Negative (Negative) Ur Leukocyte Esterase Negative (Negative) Urine Test NEGATIVE (NEGATIVE) Independent Interpretation I performed an independent interpretation of an: Ultrasound Radiology Impression Discussion of test interpretation with radiology: I have reviewed the radiologist's reading. Medications Administered Discontinued Medications Generic Name Dose Route Start Last Admin Trade Name Freq PRN Reason Stop Dose Admin Dicyclomine HCl 20 mg 02/04/23 23:04 02/04/23 23:32 Dicyclomine Hcl 10 Mg Capsule PO 02/04/23 23:05 20 mg ONCE ONE Administration Discharge Plan Discharge Clinical Impression: Gastritis Patient Disposition: Home, Self-Care Instructions: Gastritis (ED) Additional Instructions: Drink plenty of fluids Avoid fried or spicy food Take Prilosec daily Follow with PCP Your ultrasound of the abdomen is negative for gallstones Possibly you have IBS Prescriptions: New omeprazole 40 mg capsule,delayed release(DR/EC) 40 mg PO DAILY Qty: 30 0RF dicyclomine 20 mg tablet 20 mg PO TID PRN (Reason: abdominal pain) Qty: 20 0RF No Action desogestrel-ethinyl estradiol [Apri] 0.15-0.03 mg tablet 1 tab PO DAILY ferrous sulfate 325 mg (65 mg iron) tablet 325 mg PO DAILY fluoxetine 10 mg capsule 10 mg PO DAILY erythromycin 5 mg/gram (0.5 %) ointment 1 appl ophthalmic-Right DAILY Qty: 3.5 0RF loratadine [Claritin] 10 mg tablet 10 mg PO DAILY acetaminophen 325 mg tablet 325 mg PO ONCE Qty: 3 0RF meloxicam 7.5 mg tablet 7.5 mg PO DAILY Qty: 14 0RF lidocaine 5 % adhesive patch,medicated 1 patch topical DAILY Qty: 15 0RF Rx Instructions: leave on most painful area for up to 12 hrs cyclobenzaprine 5 mg tablet 5 mg PO BEDTIME PRN (Reason: muscle spasm) Qty: 10 0RF lidocaine [AsperFlex (lidocaine)] 4 % adhesive patch,medicated 1 patch topical DAILY PRN (Reason: pain) Qty: 15 0RF prednisone 20 mg tablet 40 mg PO DAILY 5 Days Qty: 10 0RF naproxen 500 mg tablet 500 mg PO BID PRN (Reason: pain) Qty: 14 0RF
[2023-02-04 22:56] LABS: Troponin-I High Sensitivity < 2.7 ng/L (<3.5-17.0)
[2023-02-04 23:00] VITALS: BP 141/77; PULSE 96; RESP 16; O2SAT 98
[2023-02-04] MEDS: Dicyclomine HCl 10 MG CAPSULE 20 MG PO (23:32)
[2023-02-05 00:15] VITALS: BP 132/86; PULSE 82; RESP 18; TEMP 36.8; O2SAT 98
--- NOTE | 2023-02-05 00:23 | MHC.EDTECH ---
This tech assumed care of patient at 2300, hourly rounds and vitals completed,Patient ambulated to bathroom with a steady gait and a urine sample was obtained and sent to lab. Family at bedside and call burton within reach
[2023-02-05 00:29] LABS: Appearance Urine Clear; Color Urine Yellow; Glucose Urine UA Negative (Negative); Leukocyte Esterase Urine Negative (Negative); Nitrite Urine Negative (Negative); PH 6.5 (5.0-9.0); Specific Gravity - Urine >= 1.030 (1.005-1.025); Urine Blood Negative (Negative); Urine Ketones Trace mg/dL (Negative); Urine Protein Negative (Neg-Trace)
[2023-02-05 00:30] LABS: UPreg QC Valid YES; Urine Pregnancy NEGATIVE (NEGATIVE)
== END 2023-02-05 01:15 | disposition home or self-care (01) ==
PROVIDERS: Emergency Provider Internal Medicine; PCP Internal Medicine
DX: K29.70 Gastritis, unspecified, without bleeding (principal)
CPT/HCPCS: 36415; 76705; 80053; 81003; 81025; 83690; 84484; 85025; 93005; 99284

== ENCOUNTER → 2023-02-04 22:19 | Outpatient (BNV) | payer OTHER, SELFPAY | PROVIDERS: Emergency Provider Internal Medicine; PCP Internal Medicine; Visit Provider Internal Medicine | DX: R10.9 Unspecified abdominal pain (principal) | CPT/HCPCS: 93010 ==

== ENCOUNTER 2023-02-21 16:11 | Outpatient (REF) | payer OTHER, SELFPAY | END 2023-02-21 16:12 | disposition home or self-care (01) | LOC: HO.LAB 16:11 | PROVIDERS: PCP Internal Medicine; Visit Provider Internal Medicine | DX: Z13.89 Encounter for screening for other disorder (principal) ==

== ENCOUNTER 2023-02-23 15:22 | Outpatient (REF) | payer OTHER, SELFPAY | END 2023-02-23 15:23 | disposition home or self-care (01) | LOC: HO.LNP 15:22 | PROVIDERS: Visit Provider Internal Medicine | DX: R10.13 Epigastric pain (principal) | CPT/HCPCS: 87338 ==

== ENCOUNTER 2023-03-13 08:12 | Outpatient (AMB) | payer SELFPAY ==
[2023-03-13 08:42] VITALS: BP 136/70; PULSE 95; TEMP 36.2; O2SAT 98; BMI 42.5
--- NOTE | 2023-03-13 08:42 | MHC.OFFWIV ---
Intake Vital Signs 03/13/23 08:42 Height 5 ft 10 in Weight 296 lb BMI 42.5 BP 136/70 Blood Pressure Location Lt brachial Position Sitting Pulse 95 Pulse Source Pulse Oximeter Temp 97.1 F Temp Source Temporal Artery Scan Pulse Oximetry (%) 98 Intake Visit Reasons: EP Cough, Sore throat, runny nose [phone] Intake Note: pt is here today for cough sore throat runny nose started saturday Patient Tobacco Use Status: Never used Tobacco Allergies latex Allergy (Verified 03/13/23 08:44) Rash Do you need a note to return to daycare/school/sports/work: Yes HPI HPI Comments History of Present Illness Details Onset symptoms Saturday Mother sick as well She has some plegm intermittent after she used inhaler Only uses inhaler when sick and it helps + felt hot/chills this am. No documented fever She has tried dayquil/nyquil at home + congestion/ST No ear pain + body aches/ fatigue Covid test x 3 yesterday negative PFSH Medical History Lumbar paraspinal muscle spasm Social History Patient Tobacco Use Status: Never used Tobacco Review of Systems Const Denies body aches, Reports chills, Reports fatigue and Reports fever(s) (subjective) Eyes Denies blurry vision ENT Denies otalgia, Reports nasal discharge, Denies sinus pressure and Reports sore throat Card Denies chest pain and Reports dyspnea Resp Reports chest congestion, Reports cough and Reports dyspnea GI Denies abdominal pain Endo Reports fatigue Physical Exam Vital Signs: Last Vital Signs Temp 97.1 F 03/13/23 08:42 Pulse 95 03/13/23 08:42 BP 136/70 03/13/23 08:42 Pulse Ox 98 03/13/23 08:42 BMI result Body Mass Index 42.5 General: Non-toxic, NAD. Speaking full sentences. Skin: Warm dry throughout Eye: EOMI HENT: Airway patent. Uvula midline. No pharyngeal erythema or edema. No [employer]. Bilateral canals clear. TM non-erythematous, non-bulging. No TM perforation or hemotympanum noted. Respiratory: + dry cough throughout interview/exam. Poor effort of inspiration due to coughing. CTA bilaterally. No wheezes, rales or rhonchi Cardiac: RRR. No murmur MSK: Full ROM extremities. Neurology: A/O. No aphasia or facial droop. Gait without abnormality Psych: Good mood and affect Assessment & Plan Assessment & Plan (1) Upper respiratory infection: Code(s): J06.9 - Acute upper respiratory infection, unspecified Qualifiers: URI type: unspecified viral URI Qualified Code(s): J06.9 - Acute upper respiratory infection, unspecified Plan: Patient seen and evaluated. Vitals stable No OM or OE on exam Lungs CTA COVId/flu/rsv swab obtained Nasal steroid and tessalon prescribed work note given Patient gave verbal understanding and had no additional questions or concerns at time of discharge All questions answered Orders: Orders SARS-CoV2/FLU/RSV Today J06.9 - Acute upper respiratory infection, unspecified Medications: New ipratropium bromide administer into each nostril 2 sprays intranasal BID-TID 7 days PRN 30 mL 0RF allergy symptoms benzonatate 150 mg PO BID-TID PRN 14 caps 0RF cough Coding Level of Care Code Est Pt Level 3 (77629) Diagnoses Viral upper respiratory tract infection J06.9 URI type: unspecified viral URI
== END 2023-03-13 09:18 | disposition home or self-care (01) ==
PROVIDERS: PCP Internal Medicine; Visit Provider Physician Assistant
DX: J06.9 Acute upper respiratory infection, unspecified (principal)
CPT/HCPCS: 99213

== ENCOUNTER 2023-03-13 11:32 | Outpatient (REF) | payer OTHER, SELFPAY ==
[2023-03-13 13:02] LABS: Influenza A PCR NEGATIVE (Negative); Influenza B PCR NEGATIVE (Negative); Resp Syncy Virus RNA Qual PCR NEGATIVE (Negative); SARS COV2 PCR INHOUSE NEGATIVE (Negative)
== END 2023-03-13 11:33 | disposition home or self-care (01) ==
LOC: HO.LNP 11:32
PROVIDERS: Visit Provider Physician Assistant
DX: Z11.52 Encounter for screening for COVID-19 (principal); J06.9 Acute upper respiratory infection, unspecified
CPT/HCPCS: 0241U

== ENCOUNTER 2023-03-21 08:36 | Outpatient (AMB) | payer SELFPAY ==
[2023-03-21 08:37] VITALS: BP 150/80; PULSE 120; TEMP 36.4; O2SAT 98; BMI 42.0
--- NOTE | 2023-03-21 08:37 | MHC.OFFWIV ---
Intake Vital Signs 03/21/23 08:37 Height 5 ft 10 in Weight 293 lb BMI 42.0 BP 150/80 H Blood Pressure Location Lt brachial Position Sitting Pulse 120 H Pulse Source Pulse Oximeter Temp 97.6 F Temp Source Temporal Artery Scan Pulse Oximetry (%) 98 Oxygen Delivery Method Room Air Intake Visit Reasons: EP upper respiratory infection last [id number] Intake Note: pt is here today for upper respiratory infection started last week Patient Tobacco Use Status: Never used Tobacco Allergies latex Allergy (Verified 03/21/23 08:38) Rash Do you need a note to return to daycare/school/sports/work: Yes HPI HPI Comments History of Present Illness Details 22 y/o female presents to Walk in clinic with c/o cough productive, malaise, headaches for few days now. PFSH Medical History Lumbar paraspinal muscle spasm Social History Patient Tobacco Use Status: Never used Tobacco Review of Systems Const All systems reviewed & are unremarkable except as noted in HPI and below Physical Exam Vital Signs: Last Vital Signs Temp 97.6 F 03/21/23 08:37 Pulse 120 H 03/21/23 08:37 BP 150/80 H 03/21/23 08:37 Pulse Ox 98 03/21/23 08:37 Oxygen Delivery Method Room Air 03/21/23 08:37 BMI result Body Mass Index 42.0 Const General: comfortable HEENT Head: Yes normocephalic Ears: external ears normal and TM's normal bilaterally General nose exam: No nasal polyps present and Abnormal mucous membranes and turbinates present boggy and erythematous Face and sinus: Yes sinuses nontender Mouth: Abnormal oral and palatal mucosa present erythematous Throat: Yes posterior oropharynx normal Resp Effort & Inspection: normal respiratory effort Auscultation: clear to auscultation bilaterally Cardio Rate: regular rate Rhythm: regular rhythm Assessment & Plan Assessment & Plan (1) Upper respiratory infection: Code(s): J06.9 - Acute upper respiratory infection, unspecified Qualifiers: URI type: unspecified viral URI Qualified Code(s): J06.9 - Acute upper respiratory infection, unspecified Plan: - Rest - Warm fluids (2) Cough in adult: Code(s): R05.9 - Cough, unspecified Plan: - OTC cold/cough remedies. - acetaminophen for pain relief. Orders: Orders SARS-CoV2/FLU/RSV Today J06.9 - Acute upper respiratory infection, unspecified, R05.9 - Cough, unspecified Medications: New igvsoyfevrnoevx-oejqeen-ZI 30-10-200 mg/5 mL 10 mL PO Q6H PRN 473 mL 0RF cough R05.9 - Cough, unspecified azithromycin 500 mg PO DAILY 5 days 5 tabs 0RF J06.9 - Acute upper respiratory infection, unspecified, R05.9 - Cough, unspecified Discontinued cyclobenzaprine Discontinued Reason: Patient Completed Course 5 mg PO BEDTIME PRN 10 tabs 0RF muscle spasm benzonatate Discontinued Reason: Patient Completed Course 200 mg PO BID-TID PRN 14 caps 0RF cough ipratropium bromide administer into each nostril Discontinued Reason: Patient Completed Course 2 sprays intranasal BID-TID 7 days PRN 30 mL 0RF allergy symptoms Coding Level of Care Code Est Pt Level 3 (98391) Diagnoses Viral upper respiratory tract infection J06.9 URI type: unspecified viral URI Cough in adult R05.9 Time Spent (min) 15
== END 2023-03-21 09:48 | disposition home or self-care (01) ==
PROVIDERS: PCP Internal Medicine; Visit Provider Nurse Practitioner Family
DX: J06.9 Acute upper respiratory infection, unspecified (principal); R05.9 Cough, unspecified
CPT/HCPCS: 99213

== ENCOUNTER 2023-03-21 13:05 | Outpatient (REF) | payer SELFPAY ==
[2023-03-21 14:05] LABS: Influenza A PCR POSITIVE (Negative); Influenza B PCR NEGATIVE (Negative); Resp Syncy Virus RNA Qual PCR NEGATIVE (Negative); SARS COV2 PCR INHOUSE NEGATIVE (Negative)
== END 2023-03-21 13:06 | disposition home or self-care (01) ==
LOC: HO.HMGCLNP 13:05
PROVIDERS: Visit Provider Nurse Practitioner Family
DX: Z11.52 Encounter for screening for COVID-19 (principal); Z20.822 Contact with and (suspected) exposure to COVID-19; J06.9 Acute upper respiratory infection, unspecified; R05.9 Cough, unspecified
CPT/HCPCS: 0241U

== ENCOUNTER 2024-07-16 13:55 | Outpatient (REF) | payer OTHER, SELFPAY ==
[2024-07-16 17:46] LABS: Influenza A PCR NEGATIVE (Negative); Influenza B PCR NEGATIVE (Negative); Resp Syncy Virus RNA Qual PCR NEGATIVE (Negative); SARS COV2 PCR INHOUSE NEGATIVE (Negative)
== END 2024-07-16 13:56 | disposition home or self-care (01) ==
LOC: HO.LAB 13:55
PROVIDERS: Nurse Practitioner Family; PCP Internal Medicine
DX: J06.9 Acute upper respiratory infection, unspecified (principal)
CPT/HCPCS: 0241U; 87880

== ENCOUNTER 2024-07-16 13:55 | Outpatient (AMB) | payer OTHER, SELFPAY ==
--- NOTE | 2024-07-16 14:12 | AM.OFFWIN_ITS ---
Intake Vital Signs 07/16/24 14:13 Height 5 ft 10 in Weight 323 lb 6 oz BMI 46.4 BP 128/82 Blood Pressure Location Lt brachial Position Sitting Pulse 136 H Pulse Source Pulse Oximeter Temp 99.6 F Temp Source Oral Pulse Oximetry (%) 99 Oxygen Delivery Method Room Air Intake Visit Reasons: EP sore throat, fever, body aches Intake Note: Pt presents to the office today for c/o sore throat, fever, body aches, and a cough since yesterday. Patient Tobacco Use Status: Never used Tobacco Allergies latex Allergy (Verified 07/16/24 14:15) Rash HPI HPI Comments History of Present Illness Details 23 y/o Female patient who presents to [facility] walk in clinic with c/o Sore throat, fever, body aches, and a cough since yesterday. She reports recent sick contact with a co-worker with Influenza. [facility] Medical History (Updated 07/16/24 @ 14:45 by Padmini Singh NP) Acute respiratory disease Lumbar paraspinal muscle spasm Social History Patient Tobacco Use Status: Never used Tobacco Review of Systems Const All systems reviewed & are unremarkable except as noted in HPI and below Physical Exam Vital Signs: Last Vital Signs Temp 99.6 F 07/16/24 14:13 Pulse 136 H 07/16/24 14:13 BP 128/82 07/16/24 14:13 Pulse Ox 99 07/16/24 14:13 Oxygen Delivery Method Room Air 07/16/24 14:13 BMI result Body Mass Index 46.4 Const General: no acute distress Nutritional Appearance: obese morbidly obese Orientation/consciousness: patient oriented x3 HEENT Head: Yes normocephalic Ears: external ears normal and TM abnormal with fluid behind the TM bilateral General nose exam: Abnormal mucous membranes and turbinates present boggy Face and sinus: Yes sinuses nontender Mouth: moist mucous membranes and Abnormal oral and palatal mucosa present erythematous Throat: Yes uvula midline and Yes abnormal tonsil (Tonsils Enlarged +2 ) Resp Effort & Inspection: normal respiratory effort, able to speak in complete sentences and Actively coughing Auscultation: clear to auscultation bilaterally, no crackles, no rales, no rhonchi and no wheezes Cardio Rhythm: regular rhythm Heart sounds: S1 normal heart sound present and S2 normal heart sound present Neuro General: patient oriented x3, gait normal and moves all extremities Results AMB Rapid Strep AMB Rapid Strep Negative Last Edit by Marian Howe CMA on 07/16/24 14:32 Results Reviewed Results Reviewed: Laboratory Last Values Strep Scn Rapid Clinic Negative 07/16/24 14:32 Assessment & Plan Assessment & Plan (1) Acute respiratory disease: Code(s): J06.9 - Acute upper respiratory infection, unspecified Plan: Rapid Strep Negative. Ordered SARs OTC cold remedies. Acetaminophen for fever and pain relief. Orders: Orders AMB Rapid Strep Screen Today Z13.9 - Encounter for screening, unspecified SARS-CoV2/FLU/RSV Today J06.9 - Acute upper respiratory infection, unspecified Coding Level of Care Code Est Pt Level 4 (57324) Diagnoses Acute respiratory disease J06.9 Time Spent (min) 20
[2024-07-16 14:13] VITALS: BP 128/82; PULSE 136; TEMP 37.6; O2SAT 99; BMI 46.4
--- OUTSIDE RECORDS SUMMARY | 2024-07-16 16:28 | XMS_ITS | Clinical Summary ---
Author Organization [facility] Address [address] [place] [address] Phone Care Team Providers Care Safety Technician Name Role Phone Jailene Perez MD Primary Care Provider Allergies Active Allergy Reactions Criticality Noted Date Comments Latex Itching 12/16/2023 Medications Apri 0.15-0.03 mg per tablet Take 1 tablet by mouth 1 (one) time each day. 11/05/2023 Active FLUoxetine (PROzac) 10 mg capsule Take 1 capsule (10 mg total) by mouth 1 (one) time each day. 11/28/2023 Active Medical History Medical History Date Comments Depression Seasonal allergies POTS (postural orthostatic tachycardia syndrome) Social History Tobacco Use Types Packs/Day Years Used Date Smoking Tobacco: Never Smokeless Tobacco: Never Tobacco Cessation:Counseling Given: Not Answered Comments Unknown Sex and Gender Information Value Date Recorded Sex Assigned at Not on file Legal Sex Female 9:52 PM EST Gender Identity Not on file Sexual Orientation Not on file Obstetrics History Last Filed Vital Signs Vital Sign Reading Time Taken Comments Blood Pressure 119/82 12/17/2023 4:24 PM EST Pulse 82 12/17/2023 4:24 PM EST Temperature 36.4 ??C (97.5 ??F) 12/17/2023 4:24 PM ES T Respiratory Rate 18 12/17/2023 4:24 PM EST Oxygen Saturation 99% 12/17/2023 4:24 PM EST Inhaled Oxygen Concentration - - Weight 144 kg (317 lb) 12/16/2023 9:04 PM EST Height 177.8 cm (5' 10 ) 12/16/2023 9:04 PM EST Body Mass Index 45.48 12/16/2023 9:04 PM EST Plan of Treatment Health Maintenance Due Date Last Done Comments HPV Vaccines (1 - 3-dose series) 2013 Hepatitis B Vaccines (1 of 3 - 19+ 3-dose series) 2017 Cervical Cancer Screening: Pap Smear 09/16/2019 Depression Screening 09/26/2023 HIV Screening 09/26/2023 Hepatitis C Screening 09/26/2023 Social Influencers of Health Screening 09/26/2023 DTaP,Tdap,and Td Vaccines (2 - Td or Tdap) 10/16/2031 10/15/2021 COVID-19 Vaccine Completed 11/22/2023, 10/2021, 11/05/2020, Additional history exists Influenza Vaccine Completed 11/22/2023, 10/20/2021 HIB Vaccines Aged Out No longer eligi ble based on patient's age to complete this topic Hepatitis A Vaccines Aged Out No long er eligible based on patient's age to complete this topic IPV Vaccines Aged Out No longer eligi ble based on patient's age to complete this topic MMR Vaccines Aged Out No longer eligi ble based on patient's age to complete this topic Meningococcal ACWY Vaccine Aged Out N o longer eligible based on patient's age to complete this topic Meningococcal B Vaccine Aged Out No l onger eligible based on patient's age to complete this topic Pneumococcal Vaccine: Pediatrics (0 to 5 Years) and At-Risk Patients (6 to 64 Years) Aged Out No longer eligible based on patient's age to complete this topic RSV Immunization Patients Under 20 months Aged Out No longer eligible based on patient's age to complete this topic Varicella Vaccines Aged Out No longer eligible based on patient's age to complete this topic Insurance [facility] Care Teams Safety Technician Relationship Specialty Start Date End Date Jailene Perez MD [address] [place] [address] [place] [address] PCP - General Internal Medicine 12/17/23
== END 2024-07-16 14:47 | disposition home or self-care (01) ==
PROVIDERS: PCP Internal Medicine; Visit Provider Nurse Practitioner Family
DX: Z13.9 Encounter for screening, unspecified (principal); J06.9 Acute upper respiratory infection, unspecified